=== PATIENT | male | born 1965 | race Caucasian/White ===

== ENCOUNTER → 2019-06-14 | Outpatient (CLI) | payer OTHER ==
[~2019-06-14] MED LIST: BP MED PO; FLEXERIL5 MG; FLEXERIL5 MG PO; GENTAK3 MG/GM OP; PERCOCET 325 MG1 TA2 PO; PERCOCET 325 MG1 TA7; ROBAXIN-750750 MG PO; SEPTRA DS 800 M1 TAB PO; VICODIN 500 MG-1 TAB PO
== END | disposition home or self-care (01) ==
LOC: MRI 09:43
DX: M23.061 Cystic meniscus, other lateral meniscus, right knee (principal); M17.11 Unilateral primary osteoarthritis, right knee

== ENCOUNTER → 2021-07-30 | Outpatient (CLI) | payer OTHER | END | disposition home or self-care (01) | LOC: CARD | PROVIDERS: ATTEND Nurse Practitioner Family | DX: R01.1 Cardiac murmur, unspecified (principal) ==

== ENCOUNTER 2021-10-11 10:49 | Emergency (ER) | payer OTHER ==
[~2021-10-11] VITALS: Wt 113.4 kg
[2021-10-11 12:55] LABS: MEAN CELL VOLUME 86.2 fl (80.0-94.0); MEAN CORPUSCULAR HGB 29.7 pg (27.0-31.0); MEAN CORPUSCULAR HGB CONC 34.4 g/dl (33.0-37.0); MEAN PLATELET VOLUME 10.8 fl (9.6-12.3); PLATELET COUNT AUTOMATED 166 10*3/uL (130-400); RED BLOOD COUNT 4.99 10*6/uL (4.50-5.90); RED CELL DISTRI WIDTH 12.9 % (0-14.5); WHITE BLOOD COUNT 5.5 10*3/uL (4.8-10.8)
[2021-10-11 13:02] LABS: ACT PARTIAL THROMBO TIME 31.3 SECONDS (20.0-32.1)
[2021-10-11 13:08] LABS: ALBUMIN 2.9 gm/dl (3.1-4.5); ALKALINE PHOSPHATASE 71 U/L (45-117); BUN 9 mg/dl (7-24); CHLORIDE 99 mmol/L (98-107); CREATININE 0.88 mg/dL (0.70-1.30); LIPASE 213 U/L (73-393); POTASSIUM 3.8 mmol/L (3.5-5.1); SGOT/AST 129 IU/L (3-35); SGPT/ALT 66 U/L (12-78); SODIUM 136 mmol/L (136-145); TOTAL PROTEIN 7.6 gm/dL (6.4-8.2); TROPONIN I < 0.015 ng/ml (<0.045)
[2021-10-11 13:17] LABS: ATYPICAL LYMPHS 3 % (0-0); PLATELET SUFFICIENCY NORMAL (NORMAL); TOTAL CELLS COUNTED 100 #CELLS
[2021-10-11 14:17] LABS: BILIRUBIN Negative (Negative); BLOOD Negative (Negative); CLARITY Clear (Clear); COLOR Yellow (Yellow); GLUCOSE Negative (Negative); KETONE Negative (Negative); LEUKO ESTERASE Negative (Negative); NITRITE Negative (Negative); PH 6.5 (4.5-8.0); SPECIFIC GRAVITY 1.015 (1.001-1.030)
[2021-10-11 14:26] LABS: BACTERIA 1+; HYALINE CAST 0-2
[2021-10-11] MEDS ORDERED: MECLIZINE HCL25 M2 PO (15:20)
[2021-10-11] MEDS ORDERED: VIBRAMYCIN100 MG PO (15:30)
== END 2021-10-11 15:47 | disposition home or self-care (01) ==
LOC: ED 10:49
PROVIDERS: Physician Assistant
DX: J18.9 Pneumonia, unspecified organism (principal); R55 Syncope and collapse; Z88.8 Allergy status to other drugs, medicaments and biological substances